=== PATIENT | male | born 1955 | race Two or more races ===

== ENCOUNTER → 2017-11-05 | Outpatient (CLI) | payer MEDICAID | END | disposition home or self-care (01) | LOC: RADPV 12:56 | PROVIDERS: ATTEND Internal Medicine Nephrology | DX: N18.9 Chronic kidney disease, unspecified (principal) | CPT/HCPCS: 76770 ==

== ENCOUNTER 2021-02-22 01:25 | Emergency (ER) | payer MEDICAID ==
[~2021-02-22] VITALS: Ht 170.2 cm; Wt 77.0 kg
[~2021-02-22 01:25] MED LIST: ASPI-1450 PO; ATOR40TA28 PO; CARV12 PO; FURO20 PO; INSLAN SQ
[2021-02-22] MEDS ORDERED: LISI-662 PO (01:42)
[2021-02-22 02:01] LABS: BASOPHILS % (AUTO) 0.8 % (0.0-2.0); EOSINOPHILS % (AUTO) 5.1 % (1.0-6.0); HEMATOCRIT 34.4 % (41-53); HEMOGLOBIN 11.2 g/dL (13.5-17.5); LYMPHOCYTES # (AUTO) 1.8 K/uL (1.0-4.8); LYMPHOCYTES % (AUTO) 22.3 % (22.0-44.0); MEAN CORPUSCULAR HGB CONC 32.4 G/dL (31.0-37.0); MEAN CORPUSCULAR VOLUME 86 fL (80-100); MONOCYTES # (AUTO) 0.7 K/uL (0.1-1.0); MONOCYTES % (AUTO) 8.8 % (2.0-9.0); NEUTROPHILS # (AUTO) 5.1 K/uL (1.8-7.7); PLATELET COUNT (AUTO) 213 K/uL (150-450); RED BLOOD CELL COUNT(AUTO) 3.98 MIL/uL (4.50-5.90); RED CELL DISTRIBUTION WIDTH 13.4 % (11.5-14.5)
[2021-02-22 02:13] LABS: ANION GAP 6 mmol/L (8-16); CARBON DIOXIDE 26 mmol/L (22-29); CHLORIDE 103 mmol/L (98-107); CREATININE 2.68 mg/dL (0.60-1.30); GLOMERULAR FILTR. RATE CALC 24 mL/min (>60); GLUCOSE,RANDOM 380 mg/dL (70-110); POTASSIUM 5.4 mmol/L (3.5-5.1); SODIUM SERUM 135 mmol/L (136-145); UREA NITROGEN, BLOOD 60 mg/dL (7-18)
[2021-02-22] MEDS ORDERED: AmLODIPine BESYLATE 5 MG TABLET PO ONE (02:15)
[2021-02-22 02:19] LABS: ALANINE AMINOTRANSFERASE 175 U/L (12-78); ALBUMIN 3.1 g/dL (3.4-5.0); ALKALINE PHOSPHATASE 251 U/L (46-116); ASPARTATE AMINOTRANSFERASE 56 U/L (15-37); BILIRUBIN,TOTAL 0.3 mg/dL (0.1-1.0); TOTAL PROTEIN, SERUM 7.4 g/dL (6.4-8.2)
[2021-02-22 02:26] LABS: B-TYPE NATRIURETIC PEPTIDE 284 pg/mL (0-100)
[2021-02-22 02:31] LABS: ACETONE,BLOOD NEGATIVE (NEGATIVE)
[2021-02-22 03:03] VITALS: BP 196/99
[2021-02-22 03:31] LABS: GLUCOSE,POINT OF CARE 325 MG/DL (70-110)
== END 2021-02-22 05:38 | disposition left against medical advice (07) ==
LOC: EMS 01:28
DX: E11.65 Type 2 diabetes mellitus with hyperglycemia (principal); R77.8 Other specified abnormalities of plasma proteins; E87.5 Hyperkalemia; N17.9 Acute kidney failure, unspecified; I10 Essential (primary) hypertension; E78.00 Pure hypercholesterolemia, unspecified; Z79.899 Other long term (current) drug therapy
CPT/HCPCS: 80053; 82009; 82962; 83880; 84484; 85025; 93005; 99285

== ENCOUNTER 2023-05-02 13:28 | Inpatient (IN) | payer MEDICARE, MEDICAID ==
[~2023-05-02] VITALS: Ht 160 cm; Wt 74.2 kg
[~2023-05-02 13:28] MED LIST changes: +ALLO100T PO; +ASPI-1444 PO; -ASPI-1450 PO; +BICIT30L PO; +CLOP75TA60 PO; +ISOS30TA92 PO; +OSEL30CA PO; +TAMS0.4C94 PO
[2023-05-02 14:06] LABS: BASOPHILS % (AUTO) 0.4 % (0.0-2.0); EOSINOPHILS % (AUTO) 6.1 % (1.0-6.0); HEMATOCRIT 28.7 % (41-53); HEMOGLOBIN 9.9 g/dL (13.5-17.5); LYMPHOCYTES # (AUTO) 1.5 K/uL (1.0-4.8); LYMPHOCYTES % (AUTO) 16.7 % (22.0-44.0); MEAN CORPUSCULAR HEMOGLOBIN 30.4 pg (26.0-34.0); MEAN CORPUSCULAR HGB CONC 34.5 G/dL (31.0-37.0); MEAN CORPUSCULAR VOLUME 88 fL (80-100); MONOCYTES # (AUTO) 0.5 K/uL (0.1-1.0); MONOCYTES % (AUTO) 5.6 % (2.0-9.0); NEUTROPHILS # (AUTO) 6.2 K/uL (1.8-7.7); NEUTROPHILS % (AUTO) 71.2 % (40.0-70.0); PLATELET COUNT (AUTO) 152 K/uL (150-450); RED BLOOD CELL COUNT(AUTO) 3.25 MIL/uL (4.50-5.90); RED CELL DISTRIBUTION WIDTH 15.2 % (11.5-14.5); WHITE BLOOD COUNT (AUTO) 8.8 K/uL (4.5-11.0)
[2023-05-02 14:25] LABS: B-TYPE NATRIURETIC PEPTIDE 611 pg/mL (0-100)
[2023-05-02 14:27] LABS: TROPONIN I-HIGH SENSITIVITY 61 ng/L (<76)
[2023-05-02 14:40] LABS: ALCOHOL, BLOOD (SERUM) < 3 mg/dL (0-10)
[2023-05-02 14:44] LABS: ALANINE AMINOTRANSFERASE 44 U/L (12-78); ALBUMIN 3.6 g/dL (3.4-5.0); ALKALINE PHOSPHATASE 193 U/L (46-116); ANION GAP 11 mmol/L (8-16); ASPARTATE AMINOTRANSFERASE 23 U/L (15-37); BILIRUBIN,TOTAL 0.5 mg/dL (0.1-1.0); CALCIUM, TOTAL 9.3 mg/dL (8.8-10.5); CARBON DIOXIDE 24 mmol/L (22-29); CHLORIDE 86 mmol/L (98-107); CREATINE KINASE, TOTAL ONLY 186 U/L (39-308); CREATININE 4.43 mg/dL (0.60-1.30); GLOMERULAR FILTR. RATE CALC 13 mL/min (>60); GLUCOSE,RANDOM 134 mg/dL (70-110); POTASSIUM 3.8 mmol/L (3.5-5.1); TOTAL PROTEIN, SERUM 8.2 g/dL (6.4-8.2)
[2023-05-02 14:49] LABS: SODIUM SERUM 121 mmol/L (136-145)
[2023-05-02 14:50] LABS: UREA NITROGEN, BLOOD 112 mg/dL (7-18)
[2023-05-02 15:38] LABS: COVID AG,FIA SOURCE NASAL SWAB
[2023-05-02] MEDS ORDERED: CALC30CA PO (15:43)
[2023-05-02] MEDS ORDERED: CARV25 PO (15:50)
[2023-05-02] MEDS ORDERED: 0.9% SODIUM CHLORIDE 10 ML SYRINGE IVP PRN (16:15)
[2023-05-02] MEDS ORDERED: ACETAMINOPHEN 325 MG TABLET PO PRN (16:15)
[2023-05-02] MEDS ORDERED: ONDANSETRON HCL 4 MG/2 ML VIAL IVP PRN (16:15)
[2023-05-02 16:26] LABS: APPEARANCE,URINE CLEAR (CLEAR); BILIRUBIN,URINE NEGATIVE (NEGATIVE); COLOR,URINE COLORLESS (YELLOW); GLUCOSE, URINE (UA) NEGATIVE (NEGATIVE); KETONES,URINE NEGATIVE (NEGATIVE); LEUKOCYTE ESTERASE ,URINE NEGATIVE (NEGATIVE); NITRATE,URINE NEGATIVE (NEGATIVE); OCCULT BLOOD,URINE TRACE (NEGATIVE); PH,URINE 5.5 (5.0-8.0); PH,URINE DRUG SCREEN 5.5 (5.0-8.0); PROTEIN,URINE 100-200,SEE CONFIRM mg/dL (NEGATIVE); SPECIFIC GRAVITIY, URINE 1.009 (1.003-1.030); UROBILINOGEN,URINE <=1.0 mg/dL (<=1.0)
[2023-05-02 16:29] LABS: CREATININE,URINE RANDOM 41.6 mg/dL (30.0-125.0)
[2023-05-02 16:33] LABS: ALCOHOL, URINE DRUG SCREEN NEGATIVE (NEGATIVE); AMPHET/METH SCREEN,URINE NEGATIVE (NEGATIVE); BARBITURATE SCREEN, URINE NEGATIVE (NEGATIVE); BENZODIAZEPINES SCREEN,URINE NEGATIVE (NEGATIVE); CANNABINOID SCREEN,URINE NEGATIVE (NEGATIVE); COCAINE SCREEN,URINE NEGATIVE (NEGATIVE); METHADONE SCREEN, URINE NEGATIVE (NEGATIVE); OPIATE SCREEN,URINE NEGATIVE (NEGATIVE); PHENCYCLIDINE SCREEN,URINE NEGATIVE (NEGATIVE)
[2023-05-02 17:14] LABS: SULFOSALICYLIC ACID,URINE 3+ (Negative)
[2023-05-02 17:23] LABS: BACTERIA,URINE None Seen /HPF (None Seen); RBC,URINE None Seen /HPF (0-2); WBC,URINE None Seen /HPF (0-5)
[2023-05-02] MEDS: SODIUM CHLORIDE 3% 500 ML IV ONE (19:31)
[2023-05-02 19:57] LABS: SARS-COV2 (COVID) ANTIGEN,FIA Negative (Negative)
[2023-05-02 19:58] LABS: INFLUENZA TYPE A NEGATIVE FOR TYPE A (NEGATIVE); INFLUENZA TYPE B NEGATIVE FOR TYPE B (NEGATIVE)
[2023-05-02 20:50] VITALS: BP 168/75; PULSE 65; RESP 18; TEMP 97.6
[2023-05-02] MEDS: INSULIN GLARGINE,HUM.REC.ANLOG 100 UNITS/ML SQ SCH (21:00)
[2023-05-02 21:38] LABS: CALCIUM, TOTAL 9.1 mg/dL (8.8-10.5); CREATININE 4.05 mg/dL (0.60-1.30); POTASSIUM 3.2 mmol/L (3.5-5.1)
[2023-05-02] MEDS: CARVEDILOL 25 MG TABLET PO SCH (22:06)
[2023-05-02] MEDS: ATORVASTATIN CALCIUM 40 MG TABLET PO SCH (22:06)
[2023-05-02] MEDS: CITRIC ACID/SODIUM CITRATE 30 ML SOLUTION UDCUP PO SCH (22:06)
[2023-05-02] MEDS: FUROSEMIDE 20 MG TABLET PO SCH (22:06)
[2023-05-02] MEDS: HydrALAZINE HCL 20 MG/ML VIAL IVP PRN (22:07)
[2023-05-03 02:27] VITALS: BP 143/69; PULSE 69; RESP 18; TEMP 97.5
[2023-05-03 07:18] VITALS: BP 140/59; PULSE 61; RESP 18; TEMP 97.5
[2023-05-03 07:51] LABS: BASOPHILS % (AUTO) 0.7 % (0.0-2.0); EOSINOPHILS % (AUTO) 6.8 % (1.0-6.0); HEMATOCRIT 27.2 % (41-53); HEMOGLOBIN 9.6 g/dL (13.5-17.5); LYMPHOCYTES # (AUTO) 1.3 K/uL (1.0-4.8); LYMPHOCYTES % (AUTO) 15.9 % (22.0-44.0); MEAN CORPUSCULAR HEMOGLOBIN 30.7 pg (26.0-34.0); MEAN CORPUSCULAR HGB CONC 35.3 G/dL (31.0-37.0); MEAN CORPUSCULAR VOLUME 87 fL (80-100); MONOCYTES # (AUTO) 0.7 K/uL (0.1-1.0); MONOCYTES % (AUTO) 8.2 % (2.0-9.0); NEUTROPHILS # (AUTO) 5.7 K/uL (1.8-7.7); NEUTROPHILS % (AUTO) 68.4 % (40.0-70.0); PLATELET COUNT (AUTO) 142 K/uL (150-450); RED BLOOD CELL COUNT(AUTO) 3.13 MIL/uL (4.50-5.90); WHITE BLOOD COUNT (AUTO) 8.3 K/uL (4.5-11.0)
[2023-05-03 08:25] LABS: ALBUMIN 3.4 g/dL (3.4-5.0); BILIRUBIN,TOTAL 0.6 mg/dL (0.1-1.0); CALCIUM, TOTAL 9.3 mg/dL (8.8-10.5); CREATININE 4.04 mg/dL (0.60-1.30); THYROID STIMULATING HORMONE 3.25 uIU/mL (0.36-3.74); TOTAL PROTEIN, SERUM 7.5 g/dL (6.4-8.2)
[2023-05-03] MEDS: TAMSULOSIN HCL 0.4 MG CAPSULE PO SCH (08:32)
[2023-05-03] MEDS: CLOPIDOGREL BISULFATE 75 MG TABLET PO SCH (08:32)
[2023-05-03] MEDS: ALLOPURINOL 100 MG TABLET PO SCH (08:32)
[2023-05-03] MEDS: ISOSORBIDE MONONITRATE 30 MG ER TABLET PO SCH (08:32)
[2023-05-03] MEDS: ASPIRIN 81 MG DR TABLET PO SCH (08:33)
[2023-05-03] MEDS ORDERED: [UNRECOGNIZED DRUG - OTHER] PO SCH (09:00)
[2023-05-03] MEDS: POTASSIUM CHLORIDE 20 MEQ ER TABLET PO ONE (11:19)
[2023-05-03 11:26] VITALS: BP 117/55; PULSE 63; RESP 18; TEMP 97.6
[2023-05-03] MEDS ORDERED: DEXTROSE 50%-WATER 25 GM/50 ML SYRINGE IVP PRN (11:45)
[2023-05-03] MEDS: INSULIN LISPRO 100 UNITS/ML SQ PRN (11:49)
[2023-05-03 15:35] VITALS: BP 134/64; PULSE 65; RESP 18; TEMP 98.1
[2023-05-03] MEDS: EPOETIN ALFA 10,000 UNITS/ML VIAL SQ ONE (16:17)
[2023-05-03 17:57] LABS: GLUCOMETER DEV NAME(LOC) 5N.2C; GLUCOSE,POINT OF CARE 100 MG/DL (70-110)
[2023-05-03 20:54] VITALS: BP 139/60; PULSE 71; RESP 18; TEMP 97.6
[2023-05-03] MEDS: ACETAMINOPHEN 325 MG TABLET PO PRN (20:57)
[2023-05-04 03:27] VITALS: BP 101/46; PULSE 60; RESP 18; TEMP 98
[2023-05-04 08:22] VITALS: BP 124/53; PULSE 69; RESP 18; TEMP 97.6
[2023-05-04 11:27] VITALS: BP 142/60; PULSE 69; RESP 18; TEMP 98.2
[2023-05-04 14:01] LABS: CALCIUM, TOTAL 8.6 mg/dL (8.8-10.5); CREATININE 4.63 mg/dL (0.60-1.30); POTASSIUM 3.4 mmol/L (3.5-5.1)
[2023-05-04 15:36] VITALS: BP 118/57; PULSE 71; RESP 18; TEMP 98
[2023-05-04 20:30] VITALS: BP 159/70; PULSE 78; RESP 18; TEMP 98.3
[2023-05-04 22:07] VITALS: BP 154/69; PULSE 78; RESP 20; TEMP 98.1
[2023-05-04 22:11] LABS: GLUCOMETER DEV NAME(LOC) 5S.1B; GLUCOSE,POINT OF CARE 239 MG/DL (70-110)
[2023-05-05 01:01] VITALS: BP 128/55; PULSE 67; RESP 18; TEMP 98.8
[2023-05-05 05:11] VITALS: BP 130/82; PULSE 68; RESP 18; TEMP 98.6
[2023-05-05 07:17] LABS: PROTHROMBIN TIME 10.7 SEC (9.4-11.6)
[2023-05-05 08:16] VITALS: BP 154/65; PULSE 64; RESP 18; TEMP 97.4
[2023-05-05] MEDS: PredniSONE 20 MG TABLET PO ONE (09:23)
[2023-05-05] MEDS: HYDROCODONE/ACETAMINOPHEN 10-325 MG TABLET PO PRN (09:23)
[2023-05-05 11:47] VITALS: BP 148/59; PULSE 68; RESP 14; TEMP 97.5
[2023-05-05 16:24] VITALS: BP 148/69; PULSE 64; RESP 15
[2023-05-05] MEDS: ONDANSETRON HCL 4 MG/2 ML VIAL IVP PRN (17:07)
[2023-05-05 19:44] VITALS: BP 183/76; PULSE 68; RESP 18; TEMP 97.4
[2023-05-05] MEDS ORDERED: [UNRECOGNIZED DRUG - CODE] OU (23:55)
[2023-05-06] VITALS (7 sets, daily range): BP systolic 138–158; BP diastolic 64–78; PULSE 75–86; RESP 16–20; TEMP 97.5–98
[2023-05-06] MEDS ORDERED: PROP1DRO4 OU (03:57)
[2023-05-06 06:52] LABS: EOSINOPHILS % (AUTO) 0 % (1.0-6.0); HEMATOCRIT 27.9 % (41-53); HEMOGLOBIN 9.6 g/dL (13.5-17.5); LYMPHOCYTES # (AUTO) 0.9 K/uL (1.0-4.8); LYMPHOCYTES % (AUTO) 6.2 % (22.0-44.0); MEAN CORPUSCULAR HEMOGLOBIN 30.3 pg (26.0-34.0); MEAN CORPUSCULAR HGB CONC 34.2 G/dL (31.0-37.0); MEAN CORPUSCULAR VOLUME 89 fL (80-100); MONOCYTES # (AUTO) 0.8 K/uL (0.1-1.0); MONOCYTES % (AUTO) 5.3 % (2.0-9.0); NEUTROPHILS # (AUTO) 12.6 K/uL (1.8-7.7); PLATELET COUNT (AUTO) 147 K/uL (150-450); RED BLOOD CELL COUNT(AUTO) 3.15 MIL/uL (4.50-5.90); RED CELL DISTRIBUTION WIDTH 15.2 % (11.5-14.5); WHITE BLOOD COUNT (AUTO) 14.2 K/uL (4.5-11.0)
[2023-05-06] MEDS: INSULIN LISPRO 100 UNITS/ML SQ ONE (06:56)
[2023-05-06 07:04] LABS: NEUTROPHILS % (AUTO) 88.5 % (40.0-70.0)
[2023-05-06 07:05] LABS: CALCIUM, TOTAL 9.6 mg/dL (8.8-10.5); CREATININE 4.55 mg/dL (0.60-1.30); POTASSIUM 3.6 mmol/L (3.5-5.1)
[2023-05-06] MEDS: HYPROMELLOSE OU SCH (08:28)
[2023-05-06] MEDS ORDERED: SODIUM CHLORIDE 0.9% 100 ML ONE (08:56)
[2023-05-06] MEDS ORDERED: SODIUM CHLORIDE 0.9% 50 ML ONE (08:56)
[2023-05-06] MEDS: ETHYL ALCOHOL 62% ANTISEPTIC NASAL SANITIZER 0.6 ML AMPUL NASAL ONE (11:57)
[2023-05-06] MEDS: CHLORHEXIDINE GLUCONATE 2% TOWELETTE [2'S/6'S] TP ONE (11:57)
[2023-05-06] MEDS: SODIUM CHLORIDE 0.9% 1,000 ML IV ONE (12:07)
[2023-05-06 12:26] LABS: GLUCOMETER DEV NAME(LOC) SDS.; GLUCOSE,POINT OF CARE 226 MG/DL (70-110)
[2023-05-06] MEDS: CeFAZolin SODIUM 1 GM VIAL ONE (13:26)
[2023-05-06] MEDS: HEPARIN SODIUM,PORCINE 5,000 UNITS/ML VIAL ONE (13:26)
[2023-05-06] MEDS: LIDOCAINE/PF 1% 30 ML VIAL ONE (13:27)
[2023-05-07] VITALS: BP 110/57; PULSE 71; RESP 18; TEMP 97.6
[2023-05-07 04:00] VITALS: BP 142/64; PULSE 78; RESP 19; TEMP 98.2
[2023-05-07] MEDS ORDERED: MIDAZOLAM HCL 2 MG/2 ML VIAL IVP ONE (05:25)
[2023-05-07] MEDS ORDERED: LIDOCAINE/PF 2% 5 ML SYRINGE IVP ONE (05:25)
[2023-05-07] MEDS ORDERED: DiphenhydrAMINE HCL 50 MG/ML VIAL IVP ONE (05:25)
[2023-05-07] MEDS ORDERED: ONDANSETRON HCL 4 MG/2 ML VIAL IVP ONE (05:25)
[2023-05-07] MEDS ORDERED: LIDOCAINE/PF 2% 5 ML VIAL IM ONE (05:25)
[2023-05-07] MEDS ORDERED: PROPOFOL 1% 20 ML VIAL IVP ONE (05:25)
[2023-05-07 08:08] VITALS: BP 147/63; PULSE 74; RESP 18; TEMP 98.1
[2023-05-07] MEDS: HYDROCODONE/ACETAMINOPHEN 10-325 MG TABLET PO PRN (09:02)
[2023-05-07 11:06] VITALS: BP 128/58; PULSE 69; RESP 18; TEMP 98
[2023-05-07 16:15] VITALS: BP 145/67; PULSE 75; RESP 18; TEMP 97.9
[2023-05-07 20:00] VITALS: BP 133/63; PULSE 75; RESP 18; TEMP 98.2
[2023-05-08] VITALS: BP 139/59; PULSE 72; RESP 18; TEMP 97.8
[2023-05-08 00:09] LABS: GLUCOMETER DEV NAME(LOC) 5S.2C; GLUCOSE,POINT OF CARE 101 MG/DL (70-110)
[2023-05-08 00:12] LABS: GLUCOMETER DEV NAME(LOC) 5S.2C; GLUCOSE,POINT OF CARE 443 MG/DL (70-110)
[2023-05-08 00:13] LABS: GLUCOMETER DEV NAME(LOC) 5S.2C; GLUCOSE,POINT OF CARE 323 MG/DL (70-110)
[2023-05-08 00:13] LABS: GLUCOMETER DEV NAME(LOC) 5S.2C; GLUCOSE,POINT OF CARE 131 MG/DL (70-110)
[2023-05-08 00:25] LABS: BASOPHILS % (AUTO) 0.4 % (0.0-2.0); EOSINOPHILS % (AUTO) 3.7 % (1.0-6.0); HEMOGLOBIN 8.2 g/dL (13.5-17.5); LYMPHOCYTES # (AUTO) 1.4 K/uL (1.0-4.8); LYMPHOCYTES % (AUTO) 13.6 % (22.0-44.0); MEAN CORPUSCULAR HEMOGLOBIN 30.4 pg (26.0-34.0); MEAN CORPUSCULAR HGB CONC 34.1 G/dL (31.0-37.0); MEAN CORPUSCULAR VOLUME 89 fL (80-100); MONOCYTES % (AUTO) 10.1 % (2.0-9.0); NEUTROPHILS # (AUTO) 7.5 K/uL (1.8-7.7); NEUTROPHILS % (AUTO) 72.2 % (40.0-70.0); PLATELET COUNT (AUTO) 169 K/uL (150-450); RED BLOOD CELL COUNT(AUTO) 2.69 MIL/uL (4.50-5.90); RED CELL DISTRIBUTION WIDTH 15.6 % (11.5-14.5); WHITE BLOOD COUNT (AUTO) 10.4 K/uL (4.5-11.0)
[2023-05-08 00:37] LABS: CALCIUM, TOTAL 8.9 mg/dL (8.8-10.5); CREATININE 5.06 mg/dL (0.60-1.30); POTASSIUM 4.2 mmol/L (3.5-5.1)
[2023-05-08 00:44] LABS: ALBUMIN 2.6 g/dL (3.4-5.0); BILIRUBIN,TOTAL 0.3 mg/dL (0.1-1.0); TOTAL PROTEIN, SERUM 6.8 g/dL (6.4-8.2)
[2023-05-08 04:00] VITALS: BP 142/64; PULSE 74; RESP 18; TEMP 97.8
[2023-05-08 06:54] LABS: BASOPHILS % (AUTO) 0.7 % (0.0-2.0); EOSINOPHILS % (AUTO) 4.5 % (1.0-6.0); HEMATOCRIT 25.8 % (41-53); LYMPHOCYTES # (AUTO) 1.5 K/uL (1.0-4.8); LYMPHOCYTES % (AUTO) 14.2 % (22.0-44.0); MEAN CORPUSCULAR HEMOGLOBIN 31.2 pg (26.0-34.0); MEAN CORPUSCULAR HGB CONC 34.8 G/dL (31.0-37.0); MEAN CORPUSCULAR VOLUME 90 fL (80-100); MONOCYTES # (AUTO) 0.8 K/uL (0.1-1.0); NEUTROPHILS # (AUTO) 7.7 K/uL (1.8-7.7); NEUTROPHILS % (AUTO) 72.6 % (40.0-70.0); PLATELET COUNT (AUTO) 194 K/uL (150-450); RED BLOOD CELL COUNT(AUTO) 2.88 MIL/uL (4.50-5.90); RED CELL DISTRIBUTION WIDTH 15.6 % (11.5-14.5); WHITE BLOOD COUNT (AUTO) 10.6 K/uL (4.5-11.0)
[2023-05-08 07:13] VITALS: BP 145/73; PULSE 71; RESP 18; TEMP 98
[2023-05-08 07:32] LABS: ALBUMIN 2.7 g/dL (3.4-5.0); BILIRUBIN,TOTAL 0.4 mg/dL (0.1-1.0); CALCIUM, TOTAL 9.3 mg/dL (8.8-10.5); CREATININE 5.15 mg/dL (0.60-1.30); TOTAL PROTEIN, SERUM 7.3 g/dL (6.4-8.2)
[2023-05-08 11:49] VITALS: BP 141/55; PULSE 73; RESP 18; TEMP 97.5
[2023-05-08] MEDS ORDERED: TRAM-559 PO (12:13)
[2023-05-09 11:51] LABS: GLUCOMETER DEV NAME(LOC) 5N.1C; GLUCOSE,POINT OF CARE 109 MG/DL (70-110)
[2023-05-09 11:51] LABS: GLUCOMETER DEV NAME(LOC) 5N.1C; GLUCOSE,POINT OF CARE 258 MG/DL (70-110)
[2023-05-09 11:51] LABS: GLUCOMETER DEV NAME(LOC) 5N.1C; GLUCOSE,POINT OF CARE 280 MG/DL (70-110)
[2023-05-09 11:51] LABS: GLUCOMETER DEV NAME(LOC) 5N.1C; GLUCOSE,POINT OF CARE 168 MG/DL (70-110)
[2023-05-09 11:56] LABS: GLUCOMETER DEV NAME(LOC) 5N.1C; GLUCOSE,POINT OF CARE 245 MG/DL (70-110)
[2023-05-09 11:56] LABS: GLUCOMETER DEV NAME(LOC) 5N.1C; GLUCOSE,POINT OF CARE 243 MG/DL (70-110)
[2023-05-09 11:56] LABS: GLUCOMETER DEV NAME(LOC) 5N.1C; GLUCOSE,POINT OF CARE 249 MG/DL (70-110)
[2023-05-09 11:56] LABS: GLUCOMETER DEV NAME(LOC) 5N.1C; GLUCOSE,POINT OF CARE 98 MG/DL (70-110)
[2023-05-09 11:56] LABS: GLUCOMETER DEV NAME(LOC) 5N.1C; GLUCOSE,POINT OF CARE 296 MG/DL (70-110)
[2023-05-09 11:57] LABS: GLUCOMETER DEV NAME(LOC) 5N.1C; GLUCOSE,POINT OF CARE 287 MG/DL (70-110)
[2023-05-09 11:57] LABS: GLUCOMETER DEV NAME(LOC) 5N.1C; GLUCOSE,POINT OF CARE 307 MG/DL (70-110)
[2023-05-09 11:57] LABS: GLUCOMETER DEV NAME(LOC) 5N.1C; GLUCOSE,POINT OF CARE 292 MG/DL (70-110)
[2023-05-09 11:57] LABS: GLUCOMETER DEV NAME(LOC) 5N.1C; GLUCOSE,POINT OF CARE 259 MG/DL (70-110)
[2023-05-09 11:57] LABS: GLUCOMETER DEV NAME(LOC) 5N.1C; GLUCOSE,POINT OF CARE 145 MG/DL (70-110)
[2023-05-10 09:55] LABS: GLUCOMETER DEV NAME(LOC) 5S.2C; GLUCOSE,POINT OF CARE 270 MG/DL (70-110)
[2023-05-10 09:55] LABS: GLUCOMETER DEV NAME(LOC) 5S.2C; GLUCOSE,POINT OF CARE 315 MG/DL (70-110)
[2023-05-10 09:55] LABS: GLUCOMETER DEV NAME(LOC) 5S.2C; GLUCOSE,POINT OF CARE 174 MG/DL (70-110)
== END 2023-05-08 12:50 | disposition home or self-care (01) | DRG 628 ==
LOC: EMS 13:38 → 5S 19:02
PROVIDERS: ADMIT Hospitalist; ATTEND Hospitalist
PROC: 03180JD Bypass Left Brachial Artery to Upper Arm Vein with Synthetic Substitute, Open Approach (ICD-10-PCS; principal; 2023-05-06 12:30)
DX: E87.1 Hypo-osmolality and hyponatremia (principal); E11.00 Type 2 diabetes mellitus with hyperosmolarity without nonketotic hyperglycemic-hyperosmolar coma (NKHHC); N18.6 End stage renal disease; N17.9 Acute kidney failure, unspecified; I12.0 Hypertensive chronic kidney disease with stage 5 chronic kidney disease or end stage renal disease; E87.70 Fluid overload, unspecified; E11.22 Type 2 diabetes mellitus with diabetic chronic kidney disease; Z20.822 Contact with and (suspected) exposure to COVID-19; D63.1 Anemia in chronic kidney disease; N40.0 Benign prostatic hyperplasia without lower urinary tract symptoms; D72.829 Elevated white blood cell count, unspecified; E11.319 Type 2 diabetes mellitus with unspecified diabetic retinopathy without macular edema; E87.6 Hypokalemia; E78.00 Pure hypercholesterolemia, unspecified; M10.9 Gout, unspecified; D69.6 Thrombocytopenia, unspecified; Z99.2 Dependence on renal dialysis; Z79.82 Long term (current) use of aspirin; Z79.4 Long term (current) use of insulin; Z79.899 Other long term (current) drug therapy; Z87.891 Personal history of nicotine dependence; Z83.3 Family history of diabetes mellitus
CPT/HCPCS: 71045; 80048; 80053; 80307; 81001; 81002; 82533; 82550; 82570; 82962; 83880; 83930; 83935; 84300; 84443; 84484; 84540; 84550; 85025; 85576; 85610; 85730; 87804; 93005; 93970; 99285; G0480; J0360; J0690; J0885; J1200; J1644; J1815; J2250; J2405; J2704; J3490; J7030; J7050; Q9967; 36415-L1; 36415-TC; Z7610

== ENCOUNTER 2023-12-10 09:48 | Inpatient (IN) | payer MEDICARE, MEDICAID ==
[~2023-12-10] VITALS: Ht 165.1 cm; Wt 74.9 kg
[2023-12-10] VITALS (22 sets, daily range): BP systolic 99–192; BP diastolic 63–91; PULSE 85–102; RESP 16–20; TEMP 97.8; O2SAT 98–100
[~2023-12-10 09:48] MED LIST changes: -BICIT30L PO; +CALC30CA PO; -CARV12 PO; +CARV25 PO; +EPOE10006 SQ; +FERR-82 PO; -FURO20 PO; +FURO20TA5 PO; -INSLAN SQ; +INSU100I26 SQ; -OSEL30CA PO; +PANT-31 PO; +SEVE800T7 PO
[2023-12-10] MEDS: SODIUM CHLORIDE 0.9% 1,000 ML IV ONE (10:00)
[2023-12-10 10:29] LABS: BASOPHILS % (AUTO) 0.7 % (0.0-2.0); EOSINOPHILS % (AUTO) 7.4 % (1.0-6.0); HEMATOCRIT 36.1 % (41-53); LYMPHOCYTES # (AUTO) 1.9 K/uL (1.0-4.8); LYMPHOCYTES % (AUTO) 20.2 % (22.0-44.0); MEAN CORPUSCULAR HEMOGLOBIN 30.3 pg (26.0-34.0); MEAN CORPUSCULAR HGB CONC 33.1 G/dL (31.0-37.0); MEAN CORPUSCULAR VOLUME 92 fL (80-100); MONOCYTES # (AUTO) 0.7 K/uL (0.1-1.0); MONOCYTES % (AUTO) 7.3 % (2.0-9.0); NEUTROPHILS # (AUTO) 6.2 K/uL (1.8-7.7); NEUTROPHILS % (AUTO) 64.4 % (40.0-70.0); PLATELET COUNT (AUTO) 192 K/uL (150-450); RED BLOOD CELL COUNT(AUTO) 3.95 MIL/uL (4.50-5.90); RED CELL DISTRIBUTION WIDTH 13.7 % (11.5-14.5); WHITE BLOOD COUNT (AUTO) 9.6 K/uL (4.5-11.0)
[2023-12-10] MEDS ORDERED: CHOL200078 PO (10:35)
[2023-12-10] MEDS ORDERED: EMPA10TA3 PO (10:35)
[2023-12-10 10:36] LABS: CALCIUM, TOTAL 9.4 mg/dL (8.8-10.5); CREATININE 5.08 mg/dL (0.60-1.30); POTASSIUM 4.8 mmol/L (3.5-5.1)
[2023-12-10] MEDS ORDERED: SODIUM CHLORIDE 0.9% 1,000 ML ONE (10:37)
[2023-12-10 10:42] LABS: ALBUMIN 3.5 g/dL (3.4-5.0); BILIRUBIN,TOTAL 0.5 mg/dL (0.1-1.0); TOTAL PROTEIN, SERUM 8.1 g/dL (6.4-8.2)
[2023-12-10 10:43] LABS: PROTHROMBIN TIME 10.4 SEC (9.4-11.6)
[2023-12-10 11:31] LABS: GLUCOMETER DEV NAME(LOC) SDS.; GLUCOSE,POINT OF CARE 262 MG/DL (70-110)
[2023-12-10] MEDS ORDERED: LIDOCAINE/PF 1% 2 ML VIAL ONE (12:00)
[2023-12-10] MEDS ORDERED: EPOE10006 SQ (12:00)
[2023-12-10] MEDS ORDERED: IOHEXOL 300 MG/ML 100 ML VIAL ONE (13:51)
[2023-12-10] MEDS ORDERED: HEPARIN SODIUM 1000 UNITS/NS 1,000 ML ONE (13:51)
[2023-12-10] MEDS ORDERED: VERAPAMIL HCL 2.5 MG/ML 2 ML VIAL ONE (13:51)
[2023-12-10] MEDS ORDERED: LIDOCAINE/PF 1% 30 ML VIAL ONE (13:51)
[2023-12-10] MEDS ORDERED: SODIUM BICARBONATE 50 MEQ/50 ML VIAL ONE (13:51)
[2023-12-10] MEDS ORDERED: NITROGLYCERIN 50 MG/D5% WATER 250 ML ONE (13:51)
[2023-12-10] MEDS ORDERED: FentaNYL CITRATE PF 100 MCG/2 ML VIAL ONE (14:00)
[2023-12-10] MEDS ORDERED: MIDAZOLAM HCL 2 MG/2 ML VIAL ONE (14:00)
[2023-12-10] MEDS: LIDOCAINE 1% 30 ML/SOD BICARB 8.4% 4 ML SQ ONE (14:23)
[2023-12-10] MEDS: IOHEXOL 300 MG/ML 100 ML VIAL ICOR ONE ×2 (14:24→14:41)
[2023-12-10] MEDS: HEPARIN SODIUM 1000 UNITS/NS 1,000 ML IARTER ONE (14:24)
[2023-12-10] MEDS ORDERED: IOHEXOL 300 MG/ML 50 ML VIAL ONE (14:28)
[2023-12-10] MEDS ORDERED: TICAGRELOR 90 MG TABLET ONE (14:35)
[2023-12-10] MEDS: HEPARIN SODIUM,PORCINE 1,000 UNITS/ML 10 ML VIAL IVP ONE ×2 (14:40→15:04)
[2023-12-10] MEDS: IOHEXOL 300 MG/ML 50 ML VIAL ICOR ONE (14:41)
[2023-12-10] MEDS ORDERED: ASPIRIN 325 MG TABLET ONE (14:45)
[2023-12-10] MEDS: ASPIRIN 325 MG TABLET PO ONE (14:54)
[2023-12-10] MEDS: TICAGRELOR 90 MG TABLET PO ONE (14:54)
[2023-12-10] MEDS: NITROGLYCERIN/D5W 50 MG/250 ML IV BOTTLE ICOR ONE (15:05)
[2023-12-10] MEDS: VERAPAMIL HCL 2.5 MG/ML 2 ML VIAL ICOR ONE (15:05)
[2023-12-10] MEDS ORDERED: DEXTROSE 50%-WATER 25 GM/50 ML SYRINGE IVP PRN (16:00)
[2023-12-10 16:30] LABS: BASOPHILS % (AUTO) 0.7 % (0.0-2.0); EOSINOPHILS % (AUTO) 5.8 % (1.0-6.0); HEMATOCRIT 37.2 % (41-53); HEMOGLOBIN 12.1 g/dL (13.5-17.5); LYMPHOCYTES # (AUTO) 2.2 K/uL (1.0-4.8); LYMPHOCYTES % (AUTO) 19.4 % (22.0-44.0); MEAN CORPUSCULAR HEMOGLOBIN 29.9 pg (26.0-34.0); MEAN CORPUSCULAR HGB CONC 32.6 G/dL (31.0-37.0); MEAN CORPUSCULAR VOLUME 92 fL (80-100); MONOCYTES # (AUTO) 0.5 K/uL (0.1-1.0); MONOCYTES % (AUTO) 4.2 % (2.0-9.0); NEUTROPHILS # (AUTO) 8.1 K/uL (1.8-7.7); NEUTROPHILS % (AUTO) 69.9 % (40.0-70.0); PLATELET COUNT (AUTO) 201 K/uL (150-450); RED BLOOD CELL COUNT(AUTO) 4.05 MIL/uL (4.50-5.90); RED CELL DISTRIBUTION WIDTH 13.9 % (11.5-14.5); WHITE BLOOD COUNT (AUTO) 11.5 K/uL (4.5-11.0)
[2023-12-10 16:40] LABS: CALCIUM, TOTAL 8.7 mg/dL (8.8-10.5); CREATININE 4.72 mg/dL (0.60-1.30); POTASSIUM 4.4 mmol/L (3.5-5.1)
[2023-12-10] MEDS: INSULIN LISPRO 100 UNITS/ML SQ PRN (18:23)
[2023-12-10] MEDS: HydrALAZINE HCL 20 MG/ML VIAL IVP PRN (18:55)
[2023-12-10 20:31] LABS: GLUCOMETER DEV NAME(LOC) 5N.2C; GLUCOSE,POINT OF CARE 231 MG/DL (70-110)
[2023-12-10] MEDS ORDERED: CARVEDILOL 6.25 MG TABLET PO SCH (21:00)
[2023-12-10] MEDS ORDERED: INSULIN GLARGINE,HUM.REC.ANLOG 100 UNITS/ML SQ SCH (21:00)
[2023-12-11] VITALS (8 sets, daily range): BP systolic 105–142; BP diastolic 51–67; PULSE 65–96; RESP 16–18; TEMP 96.3–98; O2SAT 98–100
[2023-12-11] MEDS: ATORVASTATIN CALCIUM 40 MG TABLET PO SCH (01:16)
[2023-12-11] MEDS: TICAGRELOR 90 MG TABLET PO SCH (01:17)
[2023-12-11] MEDS: FUROSEMIDE 20 MG TABLET PO SCH (01:17)
[2023-12-11] MEDS: DOCUSATE SODIUM 100 MG CAPSULE PO SCH (01:17)
[2023-12-11] MEDS: CARVEDILOL 25 MG TABLET PO SCH (01:27)
[2023-12-11] MEDS: INSULIN GLARGINE,HUM.REC.ANLOG 100 UNITS/ML SQ SCH (01:31)
[2023-12-11] MEDS: HEPARIN SODIUM,PORCINE 5,000 UNITS/ML VIAL SQ SCH (01:37)
[2023-12-11] MEDS: SODIUM CHLORIDE 0.9% 1,000 ML IV ONE (01:40)
[2023-12-11] MEDS: ACETAMINOPHEN 325 MG TABLET PO PRN (03:07)
[2023-12-11 06:46] LABS: BASOPHILS % (AUTO) 0.4 % (0.0-2.0); EOSINOPHILS % (AUTO) 3.4 % (1.0-6.0); HEMATOCRIT 34.9 % (41-53); HEMOGLOBIN 11.8 g/dL (13.5-17.5); LYMPHOCYTES # (AUTO) 1.1 K/uL (1.0-4.8); LYMPHOCYTES % (AUTO) 9.3 % (22.0-44.0); MEAN CORPUSCULAR HEMOGLOBIN 30.3 pg (26.0-34.0); MEAN CORPUSCULAR HGB CONC 33.9 G/dL (31.0-37.0); MEAN CORPUSCULAR VOLUME 89 fL (80-100); MONOCYTES # (AUTO) 0.7 K/uL (0.1-1.0); MONOCYTES % (AUTO) 5.7 % (2.0-9.0); NEUTROPHILS % (AUTO) 81.2 % (40.0-70.0); PLATELET COUNT (AUTO) 177 K/uL (150-450); RED CELL DISTRIBUTION WIDTH 13.6 % (11.5-14.5); WHITE BLOOD COUNT (AUTO) 12.3 K/uL (4.5-11.0)
[2023-12-11 06:51] LABS: GLUCOMETER DEV NAME(LOC) 5N.1D; GLUCOSE,POINT OF CARE 227 MG/DL (70-110)
[2023-12-11 06:51] LABS: GLUCOMETER DEV NAME(LOC) 5N.1D; GLUCOSE,POINT OF CARE 142 MG/DL (70-110)
[2023-12-11 07:29] LABS: CALCIUM, TOTAL 8.8 mg/dL (8.8-10.5); CREATININE 3.28 mg/dL (0.60-1.30); PHOSPHORUS 2.6 mg/dL (2.5-4.9)
[2023-12-11] MEDS: CHOLECALCIFEROL (VIT D3) 400 UNITS [10 MCG] TABLET PO SCH (07:54)
[2023-12-11] MEDS: ISOSORBIDE MONONITRATE 30 MG ER TABLET PO SCH (07:54)
[2023-12-11] MEDS: SEVELAMER CARBONATE 800 MG TABLET PO SCH (07:54)
[2023-12-11] MEDS: EMPAGLIFLOZIN 10 MG TABLET PO SCH (07:54)
[2023-12-11] MEDS: ASPIRIN 81 MG CHEWABLE TABLET PO SCH (07:56)
[2023-12-11] MEDS: TAMSULOSIN HCL 0.4 MG CAPSULE PO SCH (07:56)
[2023-12-11] MEDS: ONDANSETRON HCL 4 MG/2 ML VIAL IVP PRN (08:43)
[2023-12-11] MEDS: OxyCODONE HCL/ACETAMINOPHEN 5-325 MG TABLET PO PRN (08:44)
[2023-12-11] MEDS ORDERED: PANTOPRAZOLE SODIUM 40 MG/VIAL IVP SCH (11:45)
[2023-12-11] MEDS: PANTOPRAZOLE SODIUM 40 MG/VIAL IVP SCH (11:56)
[2023-12-11 17:06] LABS: GLUCOMETER DEV NAME(LOC) 5N.1D; GLUCOSE,POINT OF CARE 283 MG/DL (70-110)
[2023-12-11] MEDS: ONDANSETRON HCL 4 MG/2 ML VIAL IVP ONE (20:32)
[2023-12-11 20:35] LABS: GLUCOMETER DEV NAME(LOC) 5N.2C; GLUCOSE,POINT OF CARE 227 MG/DL (70-110)
[2023-12-11] MEDS: CARVEDILOL 12.5 MG TABLET PO SCH (21:07)
[2023-12-12] VITALS (14 sets, daily range): BP systolic 110–136; BP diastolic 53–67; PULSE 61–77; RESP 14–18; TEMP 97.5–98.6; O2SAT 99–100
[2023-12-12] MEDS ORDERED: SODIUM CHLORIDE 0.9% 1,000 ML ONE ×2 (06:40)
[2023-12-12 07:30] LABS: BASOPHILS % (AUTO) 0.4 % (0.0-2.0); EOSINOPHILS % (AUTO) 4.4 % (1.0-6.0); HEMOGLOBIN 10.7 g/dL (13.5-17.5); LYMPHOCYTES # (AUTO) 1.3 K/uL (1.0-4.8); LYMPHOCYTES % (AUTO) 9.8 % (22.0-44.0); MEAN CORPUSCULAR HEMOGLOBIN 30.3 pg (26.0-34.0); MEAN CORPUSCULAR HGB CONC 33.5 G/dL (31.0-37.0); MEAN CORPUSCULAR VOLUME 90 fL (80-100); MONOCYTES # (AUTO) 0.8 K/uL (0.1-1.0); MONOCYTES % (AUTO) 6.3 % (2.0-9.0); NEUTROPHILS # (AUTO) 10.5 K/uL (1.8-7.7); NEUTROPHILS % (AUTO) 79.1 % (40.0-70.0); PLATELET COUNT (AUTO) 163 K/uL (150-450); RED BLOOD CELL COUNT(AUTO) 3.54 MIL/uL (4.50-5.90); WHITE BLOOD COUNT (AUTO) 13.3 K/uL (4.5-11.0)
[2023-12-12 07:43] LABS: CALCIUM, TOTAL 8.6 mg/dL (8.8-10.5); CREATININE 5.02 mg/dL (0.60-1.30); POTASSIUM 4.5 mmol/L (3.5-5.1)
[2023-12-12 07:56] LABS: GLUCOMETER DEV NAME(LOC) 5N.1D; GLUCOSE,POINT OF CARE 245 MG/DL (70-110)
[2023-12-12 08:11] LABS: GLUCOMETER DEV NAME(LOC) 5S.1C; GLUCOSE,POINT OF CARE 205 MG/DL (70-110)
[2023-12-12] MEDS ORDERED: ATOR40TA71 PO (10:18)
[2023-12-12] MEDS ORDERED: CHOL400T56 PO (10:18)
[2023-12-12] MEDS ORDERED: CARV12 PO (10:18)
[2023-12-12] MEDS ORDERED: ASPI-1450 PO (10:18)
[2023-12-12] MEDS ORDERED: TICA90TA PO (10:18)
[2023-12-12] MEDS ORDERED: SEVE800T7 PO (10:18)
[2023-12-12] MEDS ORDERED: FURO20TA4 PO (10:18)
[2023-12-12] MEDS ORDERED: EMPA10TA3 PO (10:18)
[2023-12-12] MEDS ORDERED: PANT-31 PO (10:20)
[2023-12-12 11:45] LABS: GLUCOMETER DEV NAME(LOC) 5N.1D; GLUCOSE,POINT OF CARE 107 MG/DL (70-110)
== END 2023-12-12 16:50 | disposition home or self-care (01) | DRG 321 ==
LOC: CATHLAB 09:48 → 5S 17:10
PROVIDERS: ADMIT Internal Medicine; ATTEND Internal Medicine Cardiovascular Disease
PROC: 027034Z Dilation of Coronary Artery, One Artery with Drug-eluting Intraluminal Device, Percutaneous Approach (ICD-10-PCS; principal; 2023-12-10)
PROC: 4A023N7 Measurement of Cardiac Sampling and Pressure, Left Heart, Percutaneous Approach (ICD-10-PCS; 2023-12-10)
PROC: B2111ZZ Fluoroscopy of Multiple Coronary Arteries using Low Osmolar Contrast (ICD-10-PCS; 2023-12-10)
PROC: B2151ZZ Fluoroscopy of Left Heart using Low Osmolar Contrast (ICD-10-PCS; 2023-12-10)
PROC: 5A1D70Z Performance of Urinary Filtration, Intermittent, Less than 6 Hours Per Day (ICD-10-PCS; 2023-12-10)
DX: I25.10 Atherosclerotic heart disease of native coronary artery without angina pectoris (principal); I50.23 Acute on chronic systolic (congestive) heart failure; N18.6 End stage renal disease; I13.2 Hypertensive heart and chronic kidney disease with heart failure and with stage 5 chronic kidney disease, or end stage renal disease; E87.1 Hypo-osmolality and hyponatremia; I16.1 Hypertensive emergency; N25.81 Secondary hyperparathyroidism of renal origin; E11.22 Type 2 diabetes mellitus with diabetic chronic kidney disease; E11.65 Type 2 diabetes mellitus with hyperglycemia; E78.00 Pure hypercholesterolemia, unspecified; I95.9 Hypotension, unspecified; K21.9 Gastro-esophageal reflux disease without esophagitis; E83.39 Other disorders of phosphorus metabolism; I25.5 Ischemic cardiomyopathy; N40.0 Benign prostatic hyperplasia without lower urinary tract symptoms; Z79.02 Long term (current) use of antithrombotics/antiplatelets; Z79.4 Long term (current) use of insulin; Z79.82 Long term (current) use of aspirin; Z79.84 Long term (current) use of oral hypoglycemic drugs; Z83.3 Family history of diabetes mellitus; Z95.5 Presence of coronary angioplasty implant and graft; Z99.2 Dependence on renal dialysis; Z79.899 Other long term (current) drug therapy
CPT/HCPCS: 71045; 80048; 80053; 82962; 83690; 83735; 84100; 85025; 85610; 85730; 87340; 90935; 92920; 92928; 93005; 93306; C9113; J0360; J1644; J1815; J2250; J2405; J3010; J3490; J7030; Q9967; 36415-L1; 36415-TC; Z7610